=== PATIENT | female | born 1960 | race Caucasian/White ===

== ENCOUNTER → 2017-05-29 | Outpatient (CLI) | payer OTHER ==
[~2017-05-29] VITALS: Ht 165.1 cm; Wt 114.3 kg
[~2017-05-29] MED LIST: ADVAIR 250-501 EACH INH; AMBIEN 5 MG TABL5 M1 PO; ASPIR 8181 M1 PO; ASPIRIN325 PO; AZITHROMYCIN 2250 MG PO; CARVEDILOL12.5 MG PO; CELEXA40 MG PO; CIPROFLOXACIN500 M3 PO; CRESTOR5 MG PO; DALIRESP500 MCG PO; DITROPAN XL10 M1 PO; DULCOLAX STOOL100 MG PO; EFFIENT10 MG PO; FOLIC ACID1 MG PO; HUMALOG100 UNIT/1 SQ; IMDUR 30 MG TAB30 M1 PO; INCRUSE ELLI62.5 MCG PO; JANUMET 50-1,01 EACH PO; JANUMET 50-5001 EACH PO; LANTUS SQ; LISINOPRIL10 MG PO; LOPID600 MG PO; LOPRESSOR25 PO; LOVASTAT10 PO; LYRICA 50 MG50 MG PO; MOBIC15 MG PO; NEURONTIN 300300 M1 PO; NITROGLYCERIN0.4 MG SUBLING; NORCO 5-325 TA1 EAC1 PO; PLAVIX 75 MG TA75 MG PO; PROAIR HFA8.5 GM INH; PROZAC40 MG PO; RANEXA500 MG PO; TOPROL XL100 MG PO; VICODIN 5-5001 EACH PO; XANAX 0.25 MG0.25 MG PO
--- NOTE | ~2017-05-29 | EKG ---
[address] [place] [address] ELECTROCARDIOGRAM REPORT Name: YOSI REYES Room #: REG [facility]#: [id number] Admission: 05/29/17 Attend Phys: Jacek Caban MD Discharge: Date of : 56 Report #: [id number] THIS REPORT FOR: //name// [facility] Test Date: 2017-05-29 Test Time: 07:08:32 Pat Name: YOSI REYES Department: Room: Gender: F Personal Injury Attorney: Ant BROWN : 1960 Requested By: Jacek Caban Order Number: [id number] MD: Chris Paniagua Measurements Intervals [place] Rate: 69 P: 71 HI: 153 QRS: 150 QRSD: 116 T: 56 QT: 470 QTc: 504 Interpretive Statements Sinus rhythm IRBBB and LPFB Nonspecific T wave abnormality Compared to ECG 01/06/2016 07:07:53 Left posterior fascicular block now present Incomplete right bundle-branch block now present Electronically Signed On 05-29-2017 8:03:58 CDT by Chris Paniagua [email or web address] <ELECTRONICALLY SIGNED> By: Chris Paniagua MD, [facility] 05/29/17 0803 [phone] Chris Paniagua MD, [facility] /EPI
--- NOTE | ~2017-05-29 | CATHLAB ---
[place] [address] [address] [facility] [place] [address] INVASIVE PROCEDURE REPORT Name: YOSI REYES Room #: REG [place]#: [id number] Admission: 05/29/17 Attend Phys: Jacek Caban MD Discharge: Date of : 56 Date of Service: 05/29/17 1051 Report #: [id number] THIS REPORT FOR: //name// APPROVED REPORT Study performed: 05/29/2017 07:29:17 Patient Details Patient Status: Out-Patient Room #: The patient is a 57 year-old female Event Personnel Jacek Caban Lowerator Operator, Donta Platt RN, Lara Avina Sandifer, David Monitor Procedures Performed Left Heart Cath w/or w/o Coronaries [id number] [facility] Indication Dyspnea, Positive stress test, Chest pain Risk Factors Hypercholesterolemia, Hypertension, Diabetes Tobacco History () Previous Procedures/Diagnoses Previous PCI, Previous TN Procedure Narrative The Right Wrist^ was infiltrated with 1% Lidocaine subcutaneous anesthesia. A TRANSRADIAL SLENDER 6F GLIDESHEATH KIT #[id number] sheath was inserted into the Right Radial Artery^. Coronary angiography was performed using coronary diagnostic catheters. The right coronary system was accessed and visualized with a 5FR JR 4 #[id number] catheter. The left coronary system was accessed and visualized with a 5 FR CHIP RADIAL 3.5 #[id number] catheter. The left ventricle was accessed and visualized with a 5FR PIG 145 ANGLED #[id number] catheter. Left ventricular/Aortic Valve gradient assessed via catheter pullback. Left ventriculogram was performed in 30 degree projection. Closure device was deployed with a Fr VASC BAND L 27CM #[id number]. The patient tolerated the procedure well and there were no complications associated with the procedure. There was no hematoma. Intraoperative Conscious Sedation Sedation start time: 8.29 Case end Time: [facility] [place] [address] INVASIVE PROCEDURE REPORT Name: REYESYOSI Room #: REG [facility] [id number] Admission: 05/29/17 Attend Phys: Jacek Caban MD Discharge: Date of : 56 Date of Service: 05/29/17 1051 Report #: [id number] 9.04 Versed mg Fluoro Time: 10.58 minutes Dose: 1542 mGy Contrast Type and Amount: Omnipaque 165 ml Coronary Angiography The patient's coronary anatomy is co- dominant. Diagnostic Cath Left Main Large-caliber vessel, with no flow-limiting lesions. LAD There is a moderately severe discrete stenosis in the proximal segment, 60-70%. Within the mid segment, there is a moderate stenosis, 50%. Diagonal 1 Patent vessel, with mild to moderate diffuse disease in the proximal segment, 40%. Circumflex Codominant vessel with a stent in the midsegment, patent with mild restenosis. OM1 a small to moderately size caliber vessel with moderately severe diffuse disease in the mid/distal segment, 50%. OM2 Patent vessel, with no flow-limiting lesions. Right Coronary Total occlusion in the distal segment. R PDA Filled via collateral circulation from the left coronary artery. Left Ventriculography The left ventricle is normal in size with normal contractility. The left ventricular ejection fraction is estimated to be 65%. Hemodynamics The aortic pressure is 188/98 mmHg with a mean of 125 mmHg. The left ventricular pressure is 203/16 mmHg with a mean of mmHg. The left ventricular end diastolic pressure is 29 mmHg. Conclusion 1. Moderately severe stenosis in the proximal LAD, recommend medical therapy. If symptoms persist, consider staged angioplasty. 2. Codominant left circumflex with a patent stent in the mid segment. 3. Occluded RCA, with collateral filling of the distal PDA. [facility] [address] [place] [address] INVASIVE PROCEDURE REPORT Name: YOSI REYES Room #: REG [facility]#: [id number] Admission: 05/29/17 Attend Phys: Jacek Caban MD Discharge: Date of : 56 Date of Service: 05/29/17 1051 Report #: [id number] 4. Normal LV systolic function. 5. Aggressive risk factor management, including smoking cessation. <ELECTRONICALLY SIGNED> By: Jacek Caban MD 05/29/17 1051 1051 Jacek Caban MD /INF
[2017-05-29 07:13] VITALS: BP 136/81
[2017-05-29 07:14] LABS: HEMATOCRIT 43.2 % (37.0-47.0); HEMOGLOBIN 14.1 gm/dL (12.0-15.0); MCH 24.1 pg (26.0-34.0); MCHC 32.6 g/dL (28.0-37.0); MCV 73.8 fL (80.0-100.0); RBC 5.86 mil/uL (4.20-5.00); RDW 15.5 % (10.5-14.5); WBC 9.8 thou/uL (4.0-11.0)
[2017-05-29 07:24] LABS: CALCIUM 8.8 mg/dL (8.5-10.1); CREATININE 0.8 mg/dL (0.6-1.0); POTASSIUM 4.3 mmol/L (3.5-5.1)
== END | disposition home or self-care (01) ==
LOC: CATH 06:36
PROVIDERS: Internal Medicine Cardiovascular Disease
DX: I25.10 Atherosclerotic heart disease of native coronary artery without angina pectoris (principal); I25.82 Chronic total occlusion of coronary artery; I10 Essential (primary) hypertension; E11.9 Type 2 diabetes mellitus without complications; J44.9 Chronic obstructive pulmonary disease, unspecified; I25.2 Old myocardial infarction; M19.90 Unspecified osteoarthritis, unspecified site; E78.5 Hyperlipidemia, unspecified; F17.210 Nicotine dependence, cigarettes, uncomplicated; F41.9 Anxiety disorder, unspecified; F32.9 Major depressive disorder, single episode, unspecified; E66.09 Other obesity due to excess calories; Z82.49 Family history of ischemic heart disease and other diseases of the circulatory system; Z95.5 Presence of coronary angioplasty implant and graft; Z86.73 Personal history of transient ischemic attack (TIA), and cerebral infarction without residual deficits; Z90.49 Acquired absence of other specified parts of digestive tract; Z98.890 Other specified postprocedural states; Z79.82 Long term (current) use of aspirin; Z90.710 Acquired absence of both cervix and uterus; Z87.442 Personal history of urinary calculi; Z79.899 Other long term (current) drug therapy; Z79.891 Long term (current) use of opiate analgesic

== ENCOUNTER → 2017-08-01 | Outpatient (CLI) | payer OTHER ==
[~2017-08-01] MED LIST changes: +ATORVASTATIN CA10 MG PO
== END ==
LOC: RAD 11:12
DX: M47.895 Other spondylosis, thoracolumbar region (principal); M41.85 Other forms of scoliosis, thoracolumbar region

== ENCOUNTER 2018-05-22 05:30 | Day surgery (SDC) | payer OTHER ==
[~2018-05-22] VITALS: Ht 165.1 cm; Wt 115.7 kg
[~2018-05-22 05:30] MED LIST changes: +ALBUTEROL2.5 MG/31 INH; +CYCLOBENZAPRINE5 MG PO; +DETROL LA4 MG PO; +LOVASTATIN40 MG PO; +MYRBETRIQ50 MG PO; +NORCO 10-325 T1 EACH PO; +ZOHYDRO ER10 M1 PO
[2018-05-22 07:21] VITALS: BP 158/83
== END 2018-05-22 11:00 | disposition home or self-care (01) ==
LOC: OR 05:30 → TBA 05:32 → OR 11:00
DX: M48.062 Spinal stenosis, lumbar region with neurogenic claudication (principal); M47.896 Other spondylosis, lumbar region; M54.5 Low back pain; I10 Essential (primary) hypertension; I25.10 Atherosclerotic heart disease of native coronary artery without angina pectoris; E11.9 Type 2 diabetes mellitus without complications; I25.2 Old myocardial infarction; J44.9 Chronic obstructive pulmonary disease, unspecified; E78.5 Hyperlipidemia, unspecified; F17.210 Nicotine dependence, cigarettes, uncomplicated; G62.9 Polyneuropathy, unspecified; E66.09 Other obesity due to excess calories; F41.9 Anxiety disorder, unspecified; F32.9 Major depressive disorder, single episode, unspecified; Z90.710 Acquired absence of both cervix and uterus; Z95.5 Presence of coronary angioplasty implant and graft; Z90.49 Acquired absence of other specified parts of digestive tract; Z98.890 Other specified postprocedural states; Z79.899 Other long term (current) drug therapy; Z86.73 Personal history of transient ischemic attack (TIA), and cerebral infarction without residual deficits; Z88.8 Allergy status to other drugs, medicaments and biological substances; Z91.040 Latex allergy status; Z79.4 Long term (current) use of insulin; Z87.442 Personal history of urinary calculi
CPT/HCPCS: 50010; 50101; 50386; 50417; 56525; 56526; 57244; 62110; 62900; 70005

== ENCOUNTER 2018-08-07 13:39 | Inpatient (IN) | payer OTHER ==
[~2018-08-07] VITALS: Ht 165.1 cm; Wt 112.9 kg
[2018-08-07 16:49] LABS: PROTIME 10.7 Seconds (9.3-11.4)
[2018-08-07 17:30] VITALS: BP 181/85
--- NOTE | 2018-08-07 17:31 | NUR ---
PATIENT ARRIVED FROM [facility] AT 1445, ALERT AND ORIENTED X4. DENIES ANY CP OR DISCOMFORT. PATIENT REPORT THAT SHE HAD CP. BP SLIGHTLY ELEVATED ON ADMISION, BP 189/85 NOW AND LAND CLEARER NOTIFIED AND MEDICATED. POC INTIATED AND WILL CONTINUE TO MONITOR.
[2018-08-07 19:29] VITALS: BP 163/75
[2018-08-08] VITALS (14 sets, daily range): BP systolic 138–193; BP diastolic 35–80
[2018-08-08 04:25] LABS: ABSOLUTE NEUTROPHILS 8.3 thou/uL (1.4-8.2); BASOPHILS 0.3 % (0.0-2.0); EOSINOPHILS 0.1 % (0.0-3.0); HEMATOCRIT 41.7 % (37.0-47.0); HEMOGLOBIN 13.7 gm/dL (12.0-15.0); LYMPHOCYTES 6.6 % (24.0-44.0); MCH 24.7 pg (26.0-34.0); MCHC 32.8 g/dL (28.0-37.0); MCV 75.1 fL (80.0-100.0); MONOCYTES 0.9 % (1.0-8.0); PLATELET COUNT 237 thou/uL (150-400); POLYS 92.1 % (36.0-66.0); RBC 5.55 mil/uL (4.20-5.00); RDW 16.3 % (10.5-14.5); WBC 9.1 thou/uL (4.0-11.0)
[2018-08-08 04:42] LABS: ANION GAP 7 mmol/L (7-16); BUN 16 mg/dL (7-18); CHLORIDE 103 mmol/L (98-107); CHOLESTEROL 243 mg/dL (<200); CO2 30 mmol/L (21-32); CREATININE 0.7 mg/dL (0.6-1.0); GLUCOSE 279 mg/dL (74-106); HDL CHOLESTEROL 28 mg/dL (>40); LDL CHOLESTEROL 148 mg/dL (<100); MAGNESIUM 1.9 mg/dL (1.8-2.4); POTASSIUM 3.8 mmol/L (3.5-5.1); SODIUM 140 mmol/L (136-145); TC:HDL 8.7 Ratio (Not establshd); TRIGLYCERIDE 335 mg/dL (<150); VLDL 67 mg/dL (<40)
[2018-08-08 04:44] LABS: SERUM ASSESSMENT Clear
--- NOTE | 2018-08-08 05:05 | NUR ---
ASSUMED PT CARE AT 1900 WITH NO SIGN OF DISTRESS NOTED. PT IS ALERT AND ORIENTED. FAMILY AT BEDSIDE. ASSESSMENT COMPLETED AND CHARTED. VITAL SIGNS STABLE. SCHEDULED MEDS ADMINISTERED TO PT NEEDED. PT IS STABLE THROUGH THE NIGHT. ELEVATED BLOOD PRESSURE NOTED AT MIDNIGHT. HYDRALAZINE ADMINISTERED FOR HIGH BLOOD PRESSURE. PT IS NPO AFTER MIDNIGHT FOR A SCHEDULED CARDIAC HEART CATHERIZATION BY DR. BALDWIN. PT STARTS COMPLAIANING OF CHEST PAIN AFTER TAKING A SHOWER THIS AM. THREE DOSES OF NITRO ADMINISTERED TO PT FOR CHEST PAIN. PT STARTS TO EXPEREINCE RELIEF AFTER THE THIRD DOSE OF NITRO IS ADMINISTERED. CHEST PAIN CONTINUES TO IMPROVE AFTER NITRO ADMINISTRATION PER PT. DENIES ANY FURTHER NEEDS AT THIS TIME.
--- NOTE | 2018-08-08 09:57 | NUR ---
CAME BACK FROM OEM SALES MANAGER AT 0920, RIGHT GROIN SITE WITH MYNX DRESSING, CLEAN, DRY, INTACT, SITE IS SOFT ON PALPATION. VSS, REPORTED BACK PAIN, RECEIVED OXYCODONE AT 0840. WILL CONTINUE TO ASSESS AND ASSIST WITH ADLs NEEDED.
--- NOTE | 2018-08-08 10:35 | NUR ---
ASSUMED CARE AT 0920, CAME BACK FROM AUTISM TUTOR. VSS. RIGHT GROIN SITE DRESSING CLEAN, DRY, INTACT, NO HEMATOMA. REPORTED BACK PAIN, RECEIVED PRN PAIN MED AT 0840. POST CATH INTERVETION ADDED AND DOCUMENTED PER PROTOCOL. WILL CONTINUE TO ASSESS AND ASSIST WITH ADLs NEEDED.
--- NOTE | 2018-08-08 15:32 | CATHLAB ---
[facility] [address] [place] [address] INVASIVE PROCEDURE REPORT Name: YOSI REYES Room #: 200-I ADM IN ..#: [id number] ������������� Admission: 08/07/18 ������������� Attend Phys: Brent Lange, Discharge: ��� ������������� ��� Date of : 56 Date of Service: 08/08/18 1532 �� Report #: [id number] �������� ��������������������������������������������[id number] THIS REPORT FOR: //name// APPROVED REPORT Study performed: 08/08/2018 07:26:21 Patient Details Patient Status: In-Patient Room #: 200 The patient is a 58 year-old female Event Personnel Jacek Caban Interlocker Maintainer, Stefany Clifford RN RN, Azalia Pritchett RN, Sylwia Wells RTR, BROADCAST SUPERVISOR Monitor, Rachel Graves BROADCAST SUPERVISOR Scrub Procedures Performed Art Access - R femoral artery* , Left Heart Cath w/or w/o Coronaries [id number] [facility] Place w/wo Plasty Single RCA 233575 66304 Initial Mod Sed Same Phys/QHP Gr5y 981376 81825 Mod Sed Same Phys/QHP Ea 379309 Hemostasis w/ Mynx Indication Non-STEMI , Dyspnea, Chest pain Risk Factors Hypercholesterolemia, Coronary Artery DiseaseHypertension, Tobacco History () Previous Procedures/Diagnoses Previous PCI Procedure Narrative The Right Groin^ was infiltrated with 1% Lidocaine subcutaneous anesthesia. A PINNACLE 6FR Sheath #[id number] sheath was inserted into the RFA^. Coronary angiography was performed using coronary diagnostic catheters. The right coronary system was accessed and visualized with a 4F JR4 catheter. The left coronary system was accessed and visualized with a 6F JL5 catheter. The left ventricle was accessed and visualized with a angled Pigtail catheter. Left ventricular/Aortic Valve gradient assessed via catheter pullback. Pre-demployment femoral angiogram was performed . Closure device was deployed with a 6 Fr MYNXGRIP 6/7F #[id number]. There was no hematoma. [facility] [address] [place] [address] INVASIVE PROCEDURE REPORT Name: YOSI REYES Room #: 200-I [facility] IN [facility].#: [id number] ������������� Admission: 08/07/18 ������������� Attend Phys: Brent Lange, Discharge: ��� ������������� ��� Date of : 56 Date of Service: 08/08/18 1532 �� Report #: [id number] �������� ��������������������������������������������[id number] Intraoperative Conscious Sedation Sedation start time: 07:25 Case end Time: 08:58 Fentanyl 100 mcg Versed 2 mg Fluoro Time: 10.33 minutes Dose: DAP 49799.10 cGycm2 2356 mGy Contrast Type and Amount: Omnipaque 210 ml Coronary Angiography The patient's coronary anatomy is right dominant. Diagnostic Cath Left Main This is a large caliber vessel, patent with no flow-limiting lesions. LAD There are stents in the proximal and distal segments, patent with mild restenosis. Within the mid segment, there is a borderline stenosis, 60-70%. Recommend medical therapy. Diagonal 1 This vessel originates from the mid segment, has a 70% stenosis proximally. Recommend medical therapy. Circumflex There is mild disease in the proximal segment, 30%. There is a patent stent in the mid segment, extending into OM 2, with mild restenosis. OM1 Has a high takeoff from the left circumflex artery. There is a moderate lesion at the ostium. There is moderately severe diffuse disease in the mid/distal segment. OM2 This is a patent vessel, with no flow-limiting lesions. Right Coronary There is a severe stenosis in the proximal segment, 80%. R PDA This vessel originates from the midportion of the RCA. There is a moderate lesion at the ostium, 50%. RPLV This vessel is occluded in the proximal segment. The remaining portion of this vessel is filled via collateral circulation from the left coronary artery. Left Ventriculography Left Ventriculography was not performed. An LVEDP was measured and there is no gradient across the outflow tract. Hemodynamics The aortic pressure is 184/85 mmHg with a mean of 125 mmHg. The left ventricular pressure is 192/21 mmHg with a mean of mmHg. The left ventricular end diastolic pressure is 31 mmHg. PCI Technique Lesion Percutaneous coronary intervention was performed on the proximal [facility] [address] [place] [address] INVASIVE PROCEDURE REPORT Name: YOSI REYES Room #: 200-I [facility] IN M.R.#: [id number] ������������� Admission: 08/07/18 ������������� Attend Phys: Brent Lange, Discharge: ��� ������������� ��� Date of : 56 Date of Service: 08/08/18 1532 �� Report #: [id number] �������� ��������������������������������������������[id number] right coronary artery. The lesion stenosis prior to intervention was 80% with ADRIANE 3 flow. A VISTA 6FR JR 4 #[id number] Guide Catheter was used to engage the ostium. A Luge Wire .014 x 182CM #[id number] Interventional Guidewire was used to cross the lesion. BALLOON DILATION A Balloon catheter Euphora RX 2.5 x 12 #[id number] was inserted and inflated up to 10.00atm for 18seconds. STENT DEPLOYMENT A drug-eluting stent XIENCE YOLA RX 3.5 X 15 #[id number] was inserted and inflated up to 14.00atm for 26seconds. Additional Inflation: 18.00atm for 13seconds. POST STENT DEPLOYMENT BALLOON DILATION A Balloon catheter TREK NC RX 3.5 X 8 #[id number] was inserted and inflated up to 18.00atm for 14seconds. Final angiography reveals 0 % stenosis with ADRIANE 3 flow. Conclusion 1. Successful insertion of a drug-eluting stent into the proximal RCA stenosis. 2. There are patent stents in the proximal and distal segments of the LAD. 3. There is a borderline stenosis in the midsegment of the LAD, recommend medical therapy. 4. There is a patent stent in the mid left circumflex/OM 2 vessel. 5. Recommend dual antiplatelet therapy and aggressive risk factor management. ��������������������������������������������� <ELECTRONICALLY SIGNED> ���������������������������������������� By: Jacek Caban MD ��������������������������������������������� 08/08/18 [phone] Jacek Caban MD /INF
--- NOTE | 2018-08-08 16:05 | NUR ---
CATH PRECAUTIONS FOR 3 HOURS, CAME OFF PRECAUTIONS AT 1230, SITE IS SOFT TO TOUCH, NO HEMATOMA, MINX DRESSING CLEAN, DRY, INTACT. REPORTED PAIN, PRN PAIN MED GIVEN. WILL CONTINUE TO ASSESS AND ASSIST WITH ADLs NEEDED.
[2018-08-09 04:29] LABS: HEMATOCRIT 39.3 % (37.0-47.0); HEMOGLOBIN 12.7 gm/dL (12.0-15.0); MCH 24.4 pg (26.0-34.0); MCHC 32.3 g/dL (28.0-37.0); MCV 75.5 fL (80.0-100.0); RBC 5.2 mil/uL (4.20-5.00); RDW 16.4 % (10.5-14.5)
[2018-08-09 04:45] VITALS: BP 131/52
[2018-08-09 04:47] LABS: ALBUMIN 3.1 g/dL (3.4-5.0); CALCIUM 8.6 mg/dL (8.5-10.1); CREATININE 0.8 mg/dL (0.6-1.0); POTASSIUM 3.7 mmol/L (3.5-5.1); TOTAL BILIRUBIN 0.2 mg/dL (<0.1-1.0); TOTAL PROTEIN 6.8 g/dL (6.4-8.2)
--- NOTE | 2018-08-09 05:43 | NUR ---
CONTINUE TO HAVE BACK PAIN, CONTROLLED BY NORCO PO, UP ADLIB, DRESSING TO RIGHT GROIN CDI, SOFT AND NO HEMATOMA, PULSES PALPABLE, MONITORED CLOSELY FOR HYPO/HYPERGLYCEMIA, NO SOB NOTED, ON 3 L PER NC, USING CALL LIGHT APPROPRIATETLY, MONITORED.
[2018-08-09 07:15] VITALS: BP 136/69
--- NOTE | 2018-08-09 09:31 | EKG ---
[place] [address] [facility] [employer] [place] [address] ELECTROCARDIOGRAM REPORT Name: GURU REYESHLEEN Room #: 200-I ADM IN M.R.#: [id number] ������������������ Admission: 08/07/18 ������������������ Attend Phys: Brent Lange MD Discharge: ������������������ Date of : 56 Report #: [id number] ����������������������������������������������������������������� [id number] THIS REPORT FOR: //name// [facility] Test Date: 2018-08-09 Test Time: 07:24:13 Pat Name: YOSI REYES Department: Room: 200 I Gender: F Carpet Sewer: VIJAY : 1960 Requested By: Jacek Caban Order Number: [id number] MD: Chris Paniagua Measurements Intervals [place] Rate: 72 P: 66 ME: 156 QRS: 0 QRSD: 109 T: 116 QT: 432 QTc: 473 Interpretive Statements Sinus rhythm Indeterminate axis RSR' in V1 or V2, right VCD Nonspecific T abnormalities Compared to ECG 06/22/2017 06:08:32 T-wave abnormality now present Electronically Signed On 08-09-2018 9:31:10 CDT by Chris Paniagua [email or web address] ��������������������������������������������� <ELECTRONICALLY SIGNED> ���������������������������������������� By: Chris Paniagua MD, [facility] ��������������������������������������������� 08/09/18 0931 0724 Chris Paniagua MD, [facility] /EPI
[2018-08-09] MEDS ORDERED: CARVEDILOL25 MG PO (10:03)
[2018-08-09] MEDS ORDERED: BENAZEPRIL HCL20 MG PO (10:04)
[2018-08-09] MEDS ORDERED: NORCO 10-325 T1 EACH PO (10:04)
[2018-08-09 10:52] VITALS: BP 136/69
[2018-08-09 10:53] VITALS: BP 136/69
--- NOTE | 2018-08-09 11:46 | NUR ---
ASSUMED CARE OF PT AT SHIFT CHANGE. ASSESSMENT CHARTED. MEDS GIVEN PER MAY. PT ALERT AND ORIENTED, VSS, O2 SATS WNL ON 3L O2, NO S/SX OF CARD OR RESP DISTRESS NOTED. GROIN SITE REMAINS CDI, NO HEMATOMA. DC ORDERS ACKNOWLEDGED AND IMPLEMENTED. DC PAPERWORK DISCUSSED WITH PT, COMMUNICATES UNDERSTANDING. IV REMOVED, TELE DC'D. PT LEFT UNIT WITH ALL BELONGINGS AT APPROX 1145 BY VOLUNTEER STAFF, PT STATED ALL BELONGINGS ARE WITH PT.
== END 2018-08-09 11:45 | disposition home or self-care (01) | DRG 246 ==
LOC: 2N 13:39 → ENTRNSPT 08-09 11:06 → EDTRNSPT 08-09 11:40 → EDTRNSPTSTS 08-09 11:42 → 2N 08-09 11:45
PROVIDERS: Internal Medicine Cardiovascular Disease; Nurse Practitioner; ADMIT Internal Medicine
PROC: 4A023N7 Measurement of Cardiac Sampling and Pressure, Left Heart, Percutaneous Approach (ICD-10-PCS; principal; 2018-08-08)
PROC: B2111ZZ Fluoroscopy of Multiple Coronary Arteries using Low Osmolar Contrast (ICD-10-PCS; principal; 2018-08-08)
PROC: B41J1ZZ Fluoroscopy of Other Lower Arteries using Low Osmolar Contrast (ICD-10-PCS; principal; 2018-08-08)
PROC: 027034Z Dilation of Coronary Artery, One Artery with Drug-eluting Intraluminal Device, Percutaneous Approach (ICD-10-PCS; principal; 2018-08-08)
DX: I21.4 Non-ST elevation (NSTEMI) myocardial infarction (principal); J96.21 Acute and chronic respiratory failure with hypoxia; J98.11 Atelectasis; I25.10 Atherosclerotic heart disease of native coronary artery without angina pectoris; J44.9 Chronic obstructive pulmonary disease, unspecified; I10 Essential (primary) hypertension; G89.29 Other chronic pain; M54.9 Dorsalgia, unspecified; M19.90 Unspecified osteoarthritis, unspecified site; F32.9 Major depressive disorder, single episode, unspecified; F41.9 Anxiety disorder, unspecified; F17.210 Nicotine dependence, cigarettes, uncomplicated; E11.65 Type 2 diabetes mellitus with hyperglycemia; E78.5 Hyperlipidemia, unspecified; J40 Bronchitis, not specified as acute or chronic; E11.42 Type 2 diabetes mellitus with diabetic polyneuropathy; N32.81 Overactive bladder; Z99.81 Dependence on supplemental oxygen; Z71.6 Tobacco abuse counseling; Z95.5 Presence of coronary angioplasty implant and graft; Z88.6 Allergy status to analgesic agent; Z88.1 Allergy status to other antibiotic agents; Z91.040 Latex allergy status; Z90.710 Acquired absence of both cervix and uterus; Z90.49 Acquired absence of other specified parts of digestive tract; Z79.4 Long term (current) use of insulin; Z86.73 Personal history of transient ischemic attack (TIA), and cerebral infarction without residual deficits; Z79.82 Long term (current) use of aspirin; Z79.899 Other long term (current) drug therapy
CPT/HCPCS: 10081

== ENCOUNTER → 2019-08-16 | Outpatient (CLI) | payer OTHER ==
[~2019-08-16] MED LIST changes: +BENAZEPRIL HCL20 MG PO; +CARVEDILOL25 MG PO
== END ==
LOC: SJCVC 13:27
PROVIDERS: ATTEND Internal Medicine Cardiovascular Disease
DX: I25.10 Atherosclerotic heart disease of native coronary artery without angina pectoris (principal); I10 Essential (primary) hypertension; E78.00 Pure hypercholesterolemia, unspecified; J44.9 Chronic obstructive pulmonary disease, unspecified; E78.5 Hyperlipidemia, unspecified; I25.2 Old myocardial infarction; E66.9 Obesity, unspecified; Z86.711 Personal history of pulmonary embolism; Z79.4 Long term (current) use of insulin; Z79.899 Other long term (current) drug therapy; Z86.73 Personal history of transient ischemic attack (TIA), and cerebral infarction without residual deficits; Z87.891 Personal history of nicotine dependence

== ENCOUNTER → 2020-12-14 | Outpatient (CLI) | payer OTHER | LOC: SJCVCIMAG 10-21 08:36 | PROVIDERS: ATTEND Internal Medicine Cardiovascular Disease | DX: I25.10 Atherosclerotic heart disease of native coronary artery without angina pectoris (principal); I10 Essential (primary) hypertension; J44.9 Chronic obstructive pulmonary disease, unspecified; E11.9 Type 2 diabetes mellitus without complications; Z86.711 Personal history of pulmonary embolism; Z79.899 Other long term (current) drug therapy; Z79.4 Long term (current) use of insulin; Z86.73 Personal history of transient ischemic attack (TIA), and cerebral infarction without residual deficits; Z91.040 Latex allergy status; Z87.891 Personal history of nicotine dependence; Z88.8 Allergy status to other drugs, medicaments and biological substances ==